=== PATIENT | female | born 1960 | race Caucasian/White ===

== ENCOUNTER 2019-02-14 12:39 | Outpatient (RCR) | payer OTHER ==
[2019-02-07] MEDS: FERRIC CARBOXYMALTOSE INJ 750 MG in NS (IVPB) 250 ML IV SCH (13:00)
[2019-02-07 13:16] VITALS: BP 116/70
[~2019-02-14] VITALS: Ht 167.6 cm; Wt 95.3 kg
[~2019-02-14 12:39] MED LIST: ACETAMINOPHEN 500 MG TAB (TYLENOL) PO PRN; diphenhydrAMINE 50 MG/ML INJ (BENADRYL) IV PRN
[2019-02-14 12:57] VITALS: BP 116/91
[2019-02-14] MEDS: FERRIC CARBOXYMALTOSE INJ 750 MG in NS (IVPB) 250 ML IV SCH (13:00)
== END 2019-02-14 13:39 | disposition home or self-care (01) ==
LOC: SDC 12:39
PROVIDERS: ATTEND Internal Medicine Nephrology
DX: D50.9 Iron deficiency anemia, unspecified (principal); D63.1 Anemia in chronic kidney disease; N18.3 Chronic kidney disease, stage 3 (moderate)
CPT/HCPCS: 96365

== ENCOUNTER 2019-05-07 12:25 | Outpatient (RCR) | payer OTHER | END 2019-06-21 | disposition home or self-care (01) | LOC: ONC 12:25 | PROVIDERS: ATTEND Radiology Radiation Oncology | DX: Z51.0 Encounter for antineoplastic radiation therapy (principal); C67.0 Malignant neoplasm of trigone of bladder; C77.5 Secondary and unspecified malignant neoplasm of intrapelvic lymph nodes; I12.9 Hypertensive chronic kidney disease with stage 1 through stage 4 chronic kidney disease, or unspecified chronic kidney disease; N18.3 Chronic kidney disease, stage 3 (moderate); Z87.891 Personal history of nicotine dependence; Z79.82 Long term (current) use of aspirin; Z79.899 Other long term (current) drug therapy | CPT/HCPCS: 77290; 77300; 77301; 77334; 77336; 77338; 77386; 77470; 99202; 99204 ==

== ENCOUNTER 2019-08-22 12:53 | Outpatient (RCR) | payer OTHER | END 2019-11-20 | disposition home or self-care (01) | LOC: ONC 12:53 | PROVIDERS: ATTEND Radiology Radiation Oncology | DX: C67.0 Malignant neoplasm of trigone of bladder (principal); C77.5 Secondary and unspecified malignant neoplasm of intrapelvic lymph nodes; I12.9 Hypertensive chronic kidney disease with stage 1 through stage 4 chronic kidney disease, or unspecified chronic kidney disease; N18.3 Chronic kidney disease, stage 3 (moderate); Z87.891 Personal history of nicotine dependence; Z79.82 Long term (current) use of aspirin; Z79.899 Other long term (current) drug therapy | CPT/HCPCS: 99213 ==